=== PATIENT | female | born 2000 | race Two or more races ===

== ENCOUNTER 2021-05-19 03:41 | Emergency (ER) | payer OTHER ==
[2021-05-19 03:57] VITALS: PULSE 57
[2021-05-19 04:00] VITALS: BP 132/74
== END 2021-05-19 04:50 | disposition home or self-care (01) ==
LOC: KA.ED 03:41
DX: S31.814A Puncture wound with foreign body of right buttock, initial encounter (principal); W22.09XA Striking against other stationary object, initial encounter; Y99.0 Civilian activity done for income or pay
CPT/HCPCS: 99282; 99283

== ENCOUNTER 2022-05-21 17:59 | Emergency (ER) | payer BC ==
[2022-05-21] MEDS: Sodium Chloride 0.9% 10 ML Syringe FLUSH PRN (18:15)
[2022-05-21] MEDS: Sodium Chloride 0.9% 1,000 ML IV ONE (18:28)
[2022-05-21] MEDS: Ondansetron 4 MG/2 ML SDV IVPUSH ONE ×2 (18:30→20:49)
[2022-05-21 18:44] LABS: ANION GAP 17.6 mmol/L (5-15); CHLORIDE,CL 101 mmol/L (98-107); SODIUM,NA 136 mmol/L (136-145)
[2022-05-21 18:50] LABS: ESTIMATED GFR 116 mL/min (>=60)
[2022-05-21] MEDS ORDERED: cefTRIAXone 1 GM Vial IM ONE (20:00)
[2022-05-21] MEDS: cefTRIAXone 1 GM Vial IVPUSH ONE (20:24)
[2022-05-21] MEDS: Water For Injection, Sterile 20 ML ONE (20:24)
[2022-05-21] MEDS: Ondansetron 4 MG Tab.DIS PO ONE (20:49)
[2022-05-21 20:54] VITALS: BP 111/54; PULSE 66
== END 2022-05-21 21:00 | disposition home or self-care (01) ==
LOC: KA.ED 17:59
DX: N73.9 Female pelvic inflammatory disease, unspecified (principal); R11.2 Nausea with vomiting, unspecified; R19.7 Diarrhea, unspecified
CPT/HCPCS: 36415; 80053; 81001; 81025; 85025; 86140; 87210; 87389; 96361; 96374; 96375; 96376; 99284-25; A9270-GY; J0696; J2405; J3490; J7030

== ENCOUNTER 2023-02-08 12:33 | Observation (INO) | payer BC ==
[2023-02-08] MEDS ORDERED: Sodium Chloride 0.9% 1,000 ML IV ONE ×2 (12:34→14:11)
[2023-02-08] MEDS ORDERED: Sodium Chloride 0.9% 10 ML Syringe FLUSH PRN (12:34)
[2023-02-08] MEDS ORDERED: Ondansetron 4 MG/2 ML SDV IVPUSH ONE ×2 (12:34→13:12)
[2023-02-08 12:51] LABS: BASOPHILS ABSOLUTE AUTO 0.04 10^3/uL (0.00-0.10); BASOPHILS PERCENT AUTO 0.2 % (0.0-1.0); EOSINOPHILS ABSOLUTE AUTO 0.55 10^3/uL (0.10-0.30); EOSINOPHILS PERCENT AUTO 2.2 % (1.0-3.0); HEMATOCRIT 44.4 % (37.0-47.0); HEMOGLOBIN 15.5 g/dL (12.0-16.0); IMMATURE GRAN ABSOLUTE AUTO 0.07 10^3/uL (0.00-0.50); IMMATURE GRAN PERCENT AUTO 0.3 % (0.0-5.0); LYMPHOCYTES ABSOLUTE AUTO 2.31 10^3/uL (1.00-4.00); LYMPHOCYTES PERCENT AUTO 9.2 % (20.0-40.0); MEAN CORPUSCULAR HEMOGLOBIN 30.4 pg (27.0-31.0); MEAN CORPUSCULAR HGB CONC 34.9 g/dL (32.0-36.0); MEAN CORPUSCULAR VOLUME 87.1 fL (82.0-92.0); MEAN PLATELET VOLUME 10.4 fL (7.4-10.4); MONOCYTES ABSOLUTE AUTO 1.62 10^3/uL (0.10-0.80); MONOCYTES PERCENT AUTO 6.4 % (2.0-8.0); NEUTROPHILS ABSOLUTE AUTO 20.58 10^3/uL (2.50-7.00); NEUTROPHILS PERCENT AUTO 81.7 % (50.0-70.0); PLATELET COUNT,PLT 389 10^3/uL (150-400); RED CELL DISTRIBUTION WIDTH 12.4 % (11.5-14.5); WHITE BLOOD CELL COUNT,WBC 25.17 10^3/uL (5.00-10.00)
[2023-02-08] MEDS ORDERED: Morphine 4 MG/ML Syringe IVPUSH ONE (13:12)
[2023-02-08] MEDS ORDERED: Iopamidol 755 Mg/ML 100 ML Bottle IV ONE (13:18)
[2023-02-08 13:21] LABS: HCG QUALITATIVE,SERUM NEGATIVE (NEGATIVE)
[2023-02-08 13:25] LABS: ALANINE AMINOTRANSFERASE,ALT 6 U/L (14-63); ALBUMIN 4.68 g/dL (3.40-5.00); ALKALINE PHOSPHATASE 52 U/L (46-116); ANION GAP 22.5 mmol/L (5-15); BILIRUBIN TOTAL 2.3 mg/dL (0.2-1.0); BLOOD UREA NITROGEN,BUN 12 mg/dL (7-18); CALCIUM 9.8 mg/dL (8.7-10.3); CARBON DIOXIDE,CO2 17.3 mmol/L (21.0-32.0); CHLORIDE,CL 100 mmol/L (98-107); EST CRCL DRUG DOSING (CG) 87.76 mL/min; GLUCOSE RANDOM 163 mg/dL (70-140); LIPASE 14 U/L (16-77); POTASSIUM,K 3.8 mmol/L (3.5-5.1); PROTEIN TOTAL,TP 7.6 g/dL (6.4-8.2); SODIUM,NA 136 mmol/L (136-145)
[2023-02-08 13:27] LABS: ASPARTATE AMNIOTRANSFERASE,AST < 9 U/L (15-37); ESTIMATED GFR 93 mL/min (>=60)
[2023-02-08] MEDS ORDERED: Sodium Chloride 0.9% 50 ML IV SCH (13:30)
[2023-02-08 13:43] LABS: LACTIC ACID 3.3 mmol/L (0.4-2.0)
[2023-02-08] MEDS ORDERED: Cefepime 2 GM Vial IVPUSH ONE (14:10)
[2023-02-08 14:20] LABS: APPEARANCE,URINE CLEAR (CLEAR); BILIRUBIN,URINE NEGATIVE (NEGATIVE); COLOR,URINE YELLOW (YELLOW); GLUCOSE,URINE NEGATIVE (NEGATIVE); KETONES,URINE 40 mg/dL (NEGATIVE); LEUKOCYTE ESTERASE,URINE NEGATIVE (NEGATIVE); NITRITE,URINE NEGATIVE (NEGATIVE); OCCULT BLOOD,URINE TRACE-INTACT (NEGATIVE); PROTEIN,URINE NEGATIVE (NEGATIVE); UROBILINOGEN,URINE 0.2 E.U./dL (0.2-1.0)
[2023-02-08 14:24] LABS: BACTERIA,URINE RARE /HPF (NONE TO FEW); EPITHELIAL CELLS,URINE RARE /LPF
[2023-02-08] MEDS ORDERED: Metoclopramide 10 MG/2 ML SDV IVPUSH ONE (14:29)
[2023-02-08] MEDS ORDERED: LORazepam 2 MG/ML SDV IVPUSH ONE (15:04)
[2023-02-08] MEDS ORDERED: Acetaminophen 325 MG Tab PO PRN (16:56)
[2023-02-08] MEDS ORDERED: oxyCODONE 5 MG Tab PO PRN (16:56)
[2023-02-08] MEDS ORDERED: Promethazine 6.25 MG in Sodium Chloride 0.9% 50 ML IV PRN (16:56)
[2023-02-08] MEDS ORDERED: Docusate Sodium 100 MG Cap PO PRN (16:56)
[2023-02-08] MEDS ORDERED: Metoclopramide 10 MG/2 ML SDV IVPUSH SCH (17:15)
[2023-02-08 17:24] LABS: AMPHETAMINES SCREEN, URINE NEGATIVE (NEGATIVE); BARBITURATE SCREEN,URINE NEGATIVE (NEGATIVE); BENZODIAZEPINES SCREEN,URINE NEGATIVE (NEGATIVE); COCAINE METABOLITES,URINE NEGATIVE (NEGATIVE); METHADONE SCREEN, URINE NEGATIVE (NEGATIVE); METHAMPHETAMINES SCREEN, URINE NEGATIVE (NEGATIVE); THC SCREEN,URINE 50 NG/ML POSITIVE (NEGATIVE)
[2023-02-08 17:25] LABS: OXYCODONE SCREEN,URINE NEGATIVE (NEGATIVE); PCP SCREEN,URINE NEGATIVE (NEGATIVE); PROPOXYPHENE SCREEN,URINE NEGATIVE (NEGATIVE); TCA SCREEN,URINE NEGATIVE (NEGATIVE)
[2023-02-08] MEDS: Pantoprazole 40 MG Vial IVPUSH SCH (18:24)
[2023-02-08] MEDS: Lactated Ringers 1,000 ML IV SCH (18:24)
[2023-02-08] MEDS: Diazepam 5 MG Tab PO SCH (21:22)
[2023-02-08] MEDS: Metoclopramide 10 MG/2 ML SDV IVPUSH SCH (21:22)
[2023-02-09] MEDS: Lactated Ringers 1,000 ML IV SCH (02:28)
[2023-02-09] MEDS: Metoclopramide 10 MG/2 ML SDV IVPUSH SCH ×2 (02:29→08:27)
[2023-02-09] MEDS: Pantoprazole 40 MG Vial IVPUSH SCH (05:34)
[2023-02-09 07:29] LABS: BASOPHILS ABSOLUTE AUTO 0.03 10^3/uL (0.00-0.10); BASOPHILS PERCENT AUTO 0.2 % (0.0-1.0); EOSINOPHILS ABSOLUTE AUTO 0.14 10^3/uL (0.10-0.30); EOSINOPHILS PERCENT AUTO 1.1 % (1.0-3.0); HEMATOCRIT 35.6 % (37.0-47.0); HEMOGLOBIN 12.1 g/dL (12.0-16.0); IMMATURE GRAN ABSOLUTE AUTO 0.02 10^3/uL (0.00-0.50); IMMATURE GRAN PERCENT AUTO 0.2 % (0.0-5.0); LYMPHOCYTES ABSOLUTE AUTO 1.73 10^3/uL (1.00-4.00); LYMPHOCYTES PERCENT AUTO 13.2 % (20.0-40.0); MEAN CORPUSCULAR HEMOGLOBIN 30.3 pg (27.0-31.0); MEAN PLATELET VOLUME 9.8 fL (7.4-10.4); MONOCYTES ABSOLUTE AUTO 1.13 10^3/uL (0.10-0.80); MONOCYTES PERCENT AUTO 8.6 % (2.0-8.0); NEUTROPHILS ABSOLUTE AUTO 10.04 10^3/uL (2.50-7.00); NEUTROPHILS PERCENT AUTO 76.7 % (50.0-70.0); PLATELET COUNT,PLT 277 10^3/uL (150-400); RED CELL DISTRIBUTION WIDTH 12.7 % (11.5-14.5); WHITE BLOOD CELL COUNT,WBC 13.09 10^3/uL (5.00-10.00)
[2023-02-09 07:45] LABS: ANION GAP 13.2 mmol/L (5-15); CALCIUM 8.7 mg/dL (8.7-10.3); CARBON DIOXIDE,CO2 24.3 mmol/L (21.0-32.0); CREATININE 0.74 mg/dL (0.51-1.17); EST CRCL DRUG DOSING (CG) 107.33 mL/min; MAGNESIUM 1.5 mg/dL (1.8-2.4); POTASSIUM,K 3.5 mmol/L (3.5-5.1)
[2023-02-09] MEDS: Diazepam 5 MG Tab PO SCH (08:27)
[2023-02-09 11:36] VITALS: BP 122/55; PULSE 63
== END 2023-02-09 10:30 | disposition home or self-care (01) ==
LOC: KA.ED 12:33 → KA.MS 15:42
PROVIDERS: ADMIT Family Medicine; ATTEND Family Medicine
DX: R11.15 Cyclical vomiting syndrome unrelated to migraine (principal); D72.829 Elevated white blood cell count, unspecified; E86.0 Dehydration; N73.0 Acute parametritis and pelvic cellulitis; F41.9 Anxiety disorder, unspecified; Z79.899 Other long term (current) drug therapy
CPT/HCPCS: 36415; 71045; 74177; 80048; 80053; 80305-QW; 81001; 82947; 83605; 83690; 83735; 84703; 85025; 87040; 96361; 96374; 96375; 96376; 99284; 99285-25; A9270-GY; C9113; G0378; J0692; J2060; J2270; J2405; J2765; J3490; J7030; J7120; Q3014; Q9967